=== PATIENT | male | born 1950 ===

== ENCOUNTER 2017-04-17 05:41 | Day surgery (SDC) | payer MEDICARE, OTHER ==
--- NOTE | 2017-04-16 15:44 | Pre-Procedure Note/Attestation ---
Pre-Procedure Note/Attestation Complete Prior to Procedure Planned Procedure: right Procedure Narrative: 1. CATARACT EXTRACTION WITH PHACO AND PC IOL IMPLANTATION, RIGHT EYE. 2.MALYUGIN RING INSERTION, RIGHT EYE FOR FLOPPY IRIS SYNDROME. 3.COMPLEX CATARACT , RIGHT EYE Indications for Procedure Pre-Operative Diagnosis: 1. CATARACT ,RIGHT EYE. 2. FLOPPY IRIS SYNDROME,RIGHT EYE 3. COMPLEX CATARACT , RIGHT EYE. Attestation I attest that I discussed the nature of the procedure; its benefits; risks and complications; and alternatives (and the risks and benefits of such alternatives ), prior to the procedure, with the patient (or the patient's legal small business sales representative). I attest that, if there was a reasonable possibility of needing a blood transfusion, the patient (or the patient's legal small business sales representative) was given the [facility] standardized written summary, pursuant to the [place] Blood Safety Act ([place] Health and Safety Code # 1645, as amended). I attest that I re-evaluated the patient just prior to the surgery and that there has been no change in the patient's H&P, except as documented below: MARK AVALOS Apr 16, 2017 15:44
[~2017-04-17] VITALS: Ht 170 cm; Wt 70.8 kg
[2017-04-17] VITALS (10 sets, daily range): BP systolic 111–127; BP diastolic 72–82
[~2017-04-17 05:41] MED LIST: Akten 3.5% 1ml Btl ONE; Ketorolac Tromethamine Opth 5ml Soln ONE; Phenylephrine 10% Opth Soln 5ml ONE; Tropicamide 1% Opth 15ml Soln ONE; Vigamox Opth Soln 3ml ONE
[2017-04-17] MEDS ORDERED: acetaZOLAMIDE 125mg tab ORAL ONE (06:00)
[2017-04-17] MEDS ORDERED: Lidocaine 1% MPF 10mg/ml 5ml ONE ×2 (06:04→07:30)
[2017-04-17] MEDS ORDERED: BSS 500ml btl ONE (06:04)
[2017-04-17] MEDS ORDERED: Tetracaine 0.5% Opth 4ml Soln ONE (06:04)
[2017-04-17] MEDS ORDERED: Dexamethasone 4mg/ml vial ONE (06:04)
[2017-04-17] MEDS ORDERED: EPINEPHrine 1mg/1ml Amp ONE (06:05)
[2017-04-17] MEDS ORDERED: Povidone-Iodine 5% opth solution ONE (06:05)
[2017-04-17] MEDS ORDERED: Carbachol 0.01% Op Soln 1.5ml vial ONE (06:05)
[2017-04-17] MEDS ORDERED: BSS 15ml BTL ONE (06:05)
[2017-04-17] MEDS ORDERED: Sodium Hyaluronate 10 mg/ml 0.85ml ONE ×2 (06:06→11:18)
[2017-04-17] MEDS: Phenylephrine 10% Opth Soln 5ml RIGHT EYE SCH ×3 (06:26→06:46)
[2017-04-17] MEDS: Akten 3.5% 1ml Btl RIGHT EYE SCH ×3 (06:26→06:46)
[2017-04-17] MEDS: Vigamox Opth Soln 3ml RIGHT EYE SCH ×3 (06:26→06:46)
[2017-04-17] MEDS: Tropicamide 1% Opth 15ml Soln RIGHT EYE SCH ×3 (06:26→06:46)
[2017-04-17] MEDS: Ketorolac Tromethamine Opth 5ml Soln RIGHT EYE SCH ×3 (06:26→06:46)
[2017-04-17] MEDS ORDERED: SUPER B COMPLE150 MG PO (06:36)
[2017-04-17] MEDS ORDERED: VITAMIN D400 INTLU ORAL (06:36)
[2017-04-17] MEDS ORDERED: DiphenhydrAMINE 50mg/ml Inj ONE (06:51)
[2017-04-17] MEDS ORDERED: LR 1000ml 1,000 ML IVLG SCH (07:07)
--- NOTE | 2017-04-17 07:07 | Anethesia Preoperative Eval ---
Anesthesia Pre-op PMH/ROS General Date of Evaluation: Apr 17, 2017 Anesthesiologist: Rubens ASA Score: ASA 2 Mallampati Score Class I : Soft palate, uvula, fauces, pillars visible Class II: Soft palate, uvula, fauces visible Class III: Soft palate, base of uvula visible Class IV: Only hard plate visible Mallampati Classification: Class II Surgeon: Elena Diagnosis: Right cataract Surgical Procedure: Right cataract extraction wioth IOL Anesthesia History: none Family History: no anesthesia problems Allergies: Coded Allergies: No Known Allergies (Unverified , 04/16/17) Medications: see eMAR Past Medical History Cardiovascular: Denies: HTN, CAD, MS, valve dz, arrhythmia, other Pulmonary: Denies: asthma, COPD, [place], other Gastrointestinal/Genitourinary: Reports: other - gastritis, BPH, Denies: GERD, CRI, ESRD Neurologic/Psychiatric: Reports: depression/anxiety, Denies: dementia, CVA, TIA, other Endocrine: Denies: DM, hypothyroidism, steroids, other HEENT: Denies: cataract (L), cataract (R), glaucoma, [place] (L), [place] (R), other Hematology/Immune: Denies: anemia, DVT, bleeding disorder, other Musculoskeletal/Integumentary: Reports: OA, Denies: RA, DJD, DDD, edema, other PSxH Narrative: nasal polypectomy, TURP Anesthesia Pre-op Phys. Exam Physician Exam Last Vital Signs Date Time Temp Pulse Resp B/P (MAP) Pulse Ox O2 Delivery O2 Flow Rate FiO2 04/17/17 06:39 97.9 72 20 125/80 96 Room Air Constitutional: NAD Cardiovascular: RRR Respiratory: CTA Airway Exam Mallampati Score: Class II MO: full ROM: full Anesthesia Pre-op A/P Labs see chart Studies Pre-op Studies: EKG - sr Risk Assessment & Plan Assessment: ASA II Plan: MAC Status Change Before Surgery: No Pre-Antibiotics Drug: N/A ABDIFATAH LAUREN M.D. Apr 17, 2017 07:06
--- NOTE | 2017-04-17 07:13 | Immediate Post-Op Evaluation ---
Immediate Post-Op Evalulation Immediate Post-Op Evalulation Procedure: Right cataract extraction with IOL Date of Evaluation: Apr 17, 2017 Time of Evaluation: 08:46 IV Fluids: 500 Blood Products: 0 Estimated Blood Loss: 0 Urinary Output: 0 Blood Pressure Systolic: 127 Blood Pressure Diastolic: 80 Pulse Rate: 72 Respiratory Rate: 16 O2 Sat by Pulse Oximetry: 99 Temperature (Fahrenheit): 98 Pain Score (1-10): 0 Nausea: No Vomiting: No Complications 0 Patient Status: awake, reacts, patent, none Hydration Status: adequate Drug: N/A ABDIFATAH LAUREN M.D. Apr 17, 2017 07:13
--- NOTE | 2017-04-17 07:13 | 48 Hour Post Anesthesia Eval ---
Post Anesthesia Evaluation Procedure: Right cataract extraction with IOL Date of Evaluation: Apr 17, 2017 Airway: patent Nausea: No Vomiting: No Pain Intensity: 0 Hydration Status: adequate Cardiopulmonary Status: at baseline Mental Status/LOC: patient returned to baseline Post-Anesthesia Complications: 0 Follow-up care needed: ready to discharge ABDIFATAH LAUREN M.D. Apr 17, 2017 07:13
[2017-04-17] MEDS ORDERED: DiphenhydrAMINE 50mg/ml Inj IVP PRN (07:15)
[2017-04-17] MEDS ORDERED: fentaNYL 100 mcg/2 mL IV ONE (07:30)
[2017-04-17] MEDS ORDERED: Sterile Water Irrig 1000ml IRRIG ONE (07:30)
[2017-04-17] MEDS ORDERED: LR 1000ml ONE (07:30)
[2017-04-17] MEDS ORDERED: NS Irrig 1000ml ONE (07:30)
--- NOTE | 2017-04-17 08:45 | Discharge Summary ---
Discharge Summary Discharge Summary Discharge Summary DATE OF ADMISSION: 04/17/2017 DATE OF DISCHARGE: 04/17/2017 REASON FOR HOSPITALIZATION: 1- cataract right eye 2- Floppy iris syndrome 3- s2esavy cataract, roght eye SURGERY PERFORMED: 1- cataract extarction with phaco 2- Insertion of iris retractors 3- [place] cataract CONDITION IN THE HOSPITAL:The patient tolerated the surgery without complications. DISCHARGE CONDITION: The patient was stable at discharge. DISCHARGE MEDICATIONS: 1. Vigamox eye drops one drop q.i.d, OD 2. Prednisolone one drop q.i.d, OD 3. Acular q4h OD POSTOPERATIVE ORDERS: The patient has to rest at home. No bending, No lifting, No watching Television tonight. POSTOPERATIVE FOLLOW UP: The patient will be followed in my office tomorrow morning at 7 o'clock. MARK AVALOS Apr 17, 2017 08:45
--- NOTE | 2017-04-17 08:48 | Brief Operative Note ---
Immediate Post Operative Note Operative Note Chief Complaint: Blurry vision, right eye difficulty driving and reading Pre-op Diagnosis: 1. CATARACT ,RIGHT EYE. 2. FLOPPY IRIS SYNDROME,RIGHT EYE 3. COMPLEX CATARACT , RIGHT EYE. Procedure: 1- Cataract extraction with phaco and PC IOL implantation, right eye 2- Iris retractor hooks inserted, right eye 3- Complex cataract removed, right eye. Post-op Diagnosis: same as pre-op Surgeon: Mark Parker MD Cook Short Order: None Additional Surgeons: None Anesthesiologist: Dr Art Anesthesia: MAC Specimen: none Complications: none Condition: stable Fluids: 500ml Estimated Blood Loss: none Drains: none Implant(s) used?: Yes - Monofocal PC IOL implanted in the right eye without complication MARK PARKER Apr 17, 2017 08:48
--- NOTE | 2017-04-18 04:15 | Operative Note - Dictated ---
DATE OF OPERATION: 04/17/2017 FACILITY: [facility] SURGEON: Jesus Parker M.D. REAL ESTATE INSTRUCTOR: None. ANESTHESIOLOGIST: Dr. Art. ANESTHESIA: Monitored anesthesia care (MAC). PREOPERATIVE DIAGNOSES: 1. Cataract, right eye. 2. Astigmatism. 3. Floppy iris syndrome. 4. Complex cataract. POSTOPERATIVE DIAGNOSES: 1. Cataract, right eye. 2. Astigmatism. 3. Floppy iris syndrome. 4. Complex cataract. SURGERY PERFORMED: 1. Cataract extraction with phacoemulsification and posterior chamber intraocular lens implantation in the right eye. 2. Limbal relaxing incision (LRI) right eye. 3. Insertion of Malyugin ring for treatment of floppy iris syndrome. 4. Complex cataract extraction. INDICATION FOR SURGERY: The patient is a 67-year-old gentleman with a history of hypertension and hypercholesterolemia. He is taking medications including Diovan and pain medication pill. The patient's past medical history is unremarkable. The patient is not allergic to any medication. The patient is not a smoker and does not drink. The patient is complaining of blurred vision in the right eye. On examination of the right eye, the cornea is clear. Anterior chamber is clean and quiet, but is very shallow. Pupillary reflex is normal. There is no RAPD. There is 4+ nuclear sclerosis and 2+ cortical cataract and posterior subcapsular cataract as well. On examination of the retina, macula, optic disc, and periphery retina are within normal limits. To improve his vision in the right eye, the cataract has to be removed and posterior chamber intraocular lens has to be implanted. INFORMED CONSENT: The nature of the surgery, risks, benefits, alternatives, and potential complications were explained all in detail to the patient. The potential complications including, but not limited to bleeding, infection, posterior capsular rupture, lens subluxation, flat anterior chamber, iris prolapse, uveitis, corneal edema, macular edema, endophthalmitis, retinal detachment, loss of vision, and even loss of the eye were all explained in detail to the patient in his language, Farsi. The patient voiced understanding and accepted all the complications. The alternatives including accommodating lens, multifocal lens, toric lens, and conventional cataract surgery with limbal relaxing incision (LRI) for treatment of astigmatism were all explained in detail to the patient, who voiced understanding. The patient elected to have only conventional cataract surgery with limbal relaxing incision for treatment of astigmatism. Then, he signed the consent form, which is in the chart. DESCRIPTION OF SURGERY AND FINDINGS: Following that, the patient was taken to the operation room in stable condition. Lidocaine gel, Akten 3.5% were applied to the conjunctiva of the right eye. IV sedation was given by the anesthesiologist, Dr. Art. After adequate anesthesia and sedation had been achieved, the right eye was prepped and draped in the sterile fashion for intraocular surgery. Following that, a speculum was placed in the right eye. Before the patient was taken to the operation room, the cornea was marked at 180 and 90 meridian. In the operation room, using a corneal marker and marking pen, the steep meridian of the cornea was marked. Following that, using kendra knife with 600 blade, two parallel incisions were placed on the steep meridian of the cornea to treat astigmatism. Following that, using a Super Sharp knife, a clear corneal side port was created. A 1% lidocaine without preservative (MPF) was injected into the anterior chamber. Viscoelastic agent, Healon was injected into the anterior chamber. Following that, using a 2.8 mm keratome, temporal clear corneal keratotomy was performed. The Vision Blue was injected under the viscoelastic agent to stain the anterior capsule of the lens. Following that, the viscoelastic agent was injected into the anterior chamber. Under the viscoelastic agent, anterior capsulotomy was performed in the fashion of capsulorrhexis beautifully. Following that, all viscoelastic agent was removed from the anterior chamber. Following that, with the balanced salt solution, hydrodissection and hydrodelineation was performed and the nucleus was freed. Following that, clear fresh viscoelastic agent was injected into the anterior chamber to protect the endothelium of the cornea. Following that, using the phacoemulsification machine in the fashion of horizontal chop, the nucleus was removed in toto. Following that, with the irrigation aspiration unit, cortical material was removed from the capsular bag and the capsular bag was polished. Following that, the capsular bag was filled with viscoelastic agent, Healon. Following that, a +20 diopter ZCB00 foldable PCIOL with serial number [id number] was injected into the capsular bag. Using a Sinskey hook, the lens was manipulated and put in the proper position. Following that, the viscoelastic agent was removed from the anterior and posterior part of the lens. Following that, the anterior chamber was filled with balanced salt solution and the wound was hydrated. Following that, the wound was checked for leakage and there was leakage. Therefore, a 10-0 nylon stitch was placed on the corneal incision and the stitch was trimmed and buried into the corneal tissue. Following that, the wound was checked for leakage, there was no leakage. Vigamox eye drops were applied to the conjunctiva of the right eye. The patient tolerated the surgery without complications. At the end of the surgery, the eye was patched with a clear sterile fenestrated shield. Following that, the patient was transferred to the recovery room. In the recovery room, 125 mg Diamox was given by mouth stat. Postoperative orders and directions were given to the patient. The patient will be discharged home upon stabilization. The patient will be followed in my office tomorrow morning at 9 o'clock in the morning. Jesus Parker M.D. DR: Radha JOB#: [id number] CC:
--- NOTE | 2017-04-18 09:15 | Operative Note - Dictated ---
DATE OF OPERATION: 04/17/2017 ADDENDUM The patient had cataract extraction in the right eye and the patient had floppy iris syndrome, therefore, for the cataract removal and iris retractor hooks for treatment of floppy iris syndrome to create a kendra-shaped space for safe phacoemulsification. Jesus Parker M.D. DR: AMOL JOB#: [id number] CC:
== END 2017-04-17 10:20 | disposition home or self-care (01) ==
LOC: SUR 05:41
DX: H25.11 Age-related nuclear cataract, right eye (principal); H25.041 Posterior subcapsular polar age-related cataract, right eye; H52.201 Unspecified astigmatism, right eye; H21.81 Floppy iris syndrome; I10 Essential (primary) hypertension; E78.00 Pure hypercholesterolemia, unspecified; F32.9 Major depressive disorder, single episode, unspecified; F41.9 Anxiety disorder, unspecified
CPT/HCPCS: 65772; 66982; J0171; J1100; J1200; J3010; J7120; V2632; 94003; 94150